=== PATIENT | male | born 1995 | race Caucasian/White ===

== ENCOUNTER 2018-09-19 19:39 | Emergency (ER) | payer OTHER ==
--- NOTE | 2018-09-19 19:54 | EDPHY ---
H & P Stated Complaint: Snowboarding Accident - Head Lac Time Seen by Provider: 09/19/18 19:54 HPI/ROS: HPI CHIEF COMPLAINT: Head versus tree snowboarding. Head laceration. HISTORY OF PRESENT ILLNESS: Otherwise healthy 23-year-old male no significant medical history presents to the emergency room after he was snowboarding in the trees he was unhelmeted he hit a tree. Sustained a head laceration the top of his scalp. No LOC. Does complain of a mild headache. Denies chest pain or shortness of breath. Denies any other areas of injury. Patient reports tetanus shot up-to-date. Past Medical History: Denies medical history Past Surgical History: Denies surgical history Social History: Denies drugs alcohol tobacco. Family History: Noncontributory ROS REVIEW OF SYSTEMS: 10 Systems were reviewed and negative with the exception of the elements mentioned in the history of present illness. Exam Constitutional triage nursing summary reviewed, vital signs reviewed, awake/ alert. Eyes normal conjunctivae and sclera, EOMI, PERRLA. HENT head/neck atraumatic except left-sided parietal scalp shows a 5 cm scalp laceration, hematoma, otherwise atraumatic head and neck exam, moist mucus membranes, no epistaxis, neck supple/ no meningismus, no raccoon eyes. Respiratory clear to auscultation bilaterally, normal breath sounds, no respiratory distress, no wheezing. Cardiovascular rate normal, regular rhythm, no murmur, no edema, distal pulses normal. Gastrointestinal soft, non-tender, no rebound, no guarding, normal bowel sounds, no distension, no pulsatile mass. Genitourinary no CVA tenderness. Musculoskeletal no midline vertebral tenderness, full range of motion, no calf swelling, no tenderness of extremities, no meningismus, good pulses, neurovascularly intact. Skin pink, warm, & dry, no rash, skin atraumatic. Neurologic awake, alert and oriented x 3, AAOx3, moves all 4 extremities equally, motor intact, sensory intact, CN II-XII intact, normal cerebellar, normal vision, normal speech. Psychiatric normal mood/affect. Heme/Lymph/Immune no lymphadenopathy. Differential Diagnosis: Includes but is not limited to in a particular order closed-head injury, intracranial bleed, skull fracture, scalp laceration, subdural. Medical Decision Making: Plan for this patient CT scan head without contrast, patient reports tetanus shot up-to-date. Will need to clean his wound and then close his laceration with atiya. Re-evaluation: CT scan head without contrast negative for acute traumatic injury called to me by . Laceration Repair Procedure: Verbal Consent was obtained, Under sterile conditions, 5 cm left parietal scalp Laceration. The wound was copiously irrigated with sterile fluid, the wound was explored for foreign bodies there were none visualized, the wound was explored with a sterile glove to the base. There are no deep structures involved, including no arterial injury. 4 atiya were placed in this patient's laceration. He had good close approximation of the wound edges. He Tolerated this well. Patient understands have atiya removed in 7 days. Keep the area clean, dry and protected. Warm soapy Water in 24 hr Return if worsening symptoms questions or concerns worsening headache, vomiting not doing well Source: Patient - Personal History Current Tetanus Diphtheria and Acellular Pertussis (TDAP): Yes - Medical/Surgical History Hx Asthma: No Hx Chronic Respiratory Disease: No Hx Diabetes: No Hx Cardiac Disease: No Hx Renal Disease: No Hx Cirrhosis: No Hx Alcoholism: Yes Hx HIV/AIDS: No Hx Splenectomy or Spleen Trauma: No Other PMH: Hip Surgery, ETOH Abuse (Sober since 2016) - Social History Smoking Status: Former smoker Constitutional: Initial Vital Signs Temperature (C) 36.7 C 09/19/18 19:41 Heart Rate 75 09/19/18 19:41 Respiratory Rate 18 09/19/18 19:41 Blood Pressure 111/61 09/19/18 19:41 O2 Sat (%) 97 09/19/18 19:41 O2 Delivery Mode Room Air Allergies/Adverse Reactions: No Known Allergies Allergy (Verified 07/28/13 19:08) Home Medications: Medication Instructions Recorded NK [No Known Home Meds] 09/19/18 Medical Decision Making - Diagnostics Imaging Results: Imaging Impressions Head CT 09/19/18 20:01 Impression: No acute intracranial hemorrhage or calvarial fracture. Tawanda Swift was notified of these findings by telephone at 8:41 PM on 2018 Departure - Departure Disposition: Home, Routine, Self-Care Clinical Impression: Scalp laceration Head injury Qualifiers: Encounter type: initial encounter Qualified Code(s): S09.90XA - Unspecified injury of head, initial encounter Concussion Qualifiers: Encounter type: initial encounter Loss of consciousness presence/duration: without LOC Qualified Code(s): S06.0X0A - Concussion without loss of consciousness, initial encounter Condition: Good Instructions: Laceration (ED), Staple Care (ED) Additional Instructions: 1. Your atiya need to be removed in 7 days. 2. Return emergency room if you have worsening symptoms questions or concerns includes severe headache, vomiting, not doing well. Referrals: NONE *PRIMARY CARE P,. [Primary Care Provider] - As per Instructions
[2018-09-19] MEDS ORDERED: TDAP ADULT 0.5 ML INJ (BOOSTRIX) IM ONE (20:52)
[2018-09-19 21:07] VITALS: BP 118/98
== END 2018-09-19 21:07 | disposition home or self-care (01) ==
PROC: 0HQ0XZZ Repair Scalp Skin, External Approach (ICD-10-PCS; principal; 2018-09-19)
DX: S01.01XA Laceration without foreign body of scalp, initial encounter (principal); W22.8XXA Striking against or struck by other objects, initial encounter; Y93.23 Activity, snow (alpine) (downhill) skiing, snowboarding, sledding, tobogganing and snow tubing; Z87.891 Personal history of nicotine dependence

== ENCOUNTER → 2019-01-02 | Outpatient (CLI) | payer OTHER | LOC: CIMAGING 16:10 | PROVIDERS: ATTEND Specialist | DX: R35.1 Nocturia (principal); R35.0 Frequency of micturition | CPT/HCPCS: 76770-PO ==